=== PATIENT | male | born 1950 | race Caucasian/White ===

== ENCOUNTER 2018-01-03 11:44 | Day surgery (SDC) | payer OTHER, BC ==
[~2018-01-03] VITALS: Ht 174 cm; Wt 98.0 kg
[~2018-01-03 11:44] MED LIST: ALLEGRA ALLERG180 MG PO; BYDUREON2 MG SC; DIGOX250 MCG PO; GLIPIZIDE5 MG PO; INVOKANA100 MG PO; LANTUS 3 M100 UNITS1 SC; LO-DOSE ASPIRIN81 M1 PO; METOPROLOL SUC100 MG PO; NASACORT10.8 ML BOTH NARES; NEXIUM40 MG PO; NOVOLOG PE100 UNITS/ SC; PAXIL20 MG PO; SYNTHROID50 MCG PO; TOPROL XL50 MG PO; TRESIBA FL100 UNIT/1 SC; VICTOZA0.6 MG/0.1 SC; VYTORIN 10/41 TABLET PO; XARELTO20 MG PO; ZESTRIL20 MG PO
== END 2018-01-03 15:45 | disposition home or self-care (01) ==
LOC: CATH 11:44
PROVIDERS: Internal Medicine Cardiovascular Disease
DX: Z45.02 Encounter for adjustment and management of automatic implantable cardiac defibrillator (principal); I47.2 Ventricular tachycardia; I50.9 Heart failure, unspecified; I25.10 Atherosclerotic heart disease of native coronary artery without angina pectoris; E11.22 Type 2 diabetes mellitus with diabetic chronic kidney disease; I13.0 Hypertensive heart and chronic kidney disease with heart failure and stage 1 through stage 4 chronic kidney disease, or unspecified chronic kidney disease; N18.6 End stage renal disease; Z79.4 Long term (current) use of insulin; E78.2 Mixed hyperlipidemia; I25.2 Old myocardial infarction; I71.4 Abdominal aortic aneurysm, without rupture; Z95.5 Presence of coronary angioplasty implant and graft; I48.1 Persistent atrial fibrillation; I65.29 Occlusion and stenosis of unspecified carotid artery; E03.9 Hypothyroidism, unspecified; K27.9 Peptic ulcer, site unspecified, unspecified as acute or chronic, without hemorrhage or perforation; Z79.82 Long term (current) use of aspirin; Z79.01 Long term (current) use of anticoagulants
CPT/HCPCS: 82948; C1721; J0690; J1200; J2250; J3010; S0020